=== PATIENT | female | born 1990 | race Caucasian/White ===

== ENCOUNTER → 2020-06-16 | Outpatient (CLI) | payer BC ==
[~2020-06-16] MED LIST: AMIT10TA PO; AMOX1TAB10 PO
--- NOTE | 2020-06-16 12:49 | RAD ---
Complete abdominal ultrasound 06/16/2020 8:00 AM Clinical History: right upper quadrant abdominal pain Technique: Ultrasound examination of the abdomen was performed, and multiple static images were submitted for review. Comparison: None Findings: The visualized portions of the pancreas are within normal limits. The visualized aorta and IVC are unremarkable. The gallbladder is surgically absent. The common bile duct measures 6 mm in diameter which is within normal limits given prior cholecystectomy. The liver measures between 15 and 16 cm longitudinally. The liver is normal in echotexture. No intrahepatic biliary ductal dilatation is seen. No focal hepatic lesions are identified. The spleen is normal in appearance measuring 11 cm. The bilateral kidneys are normal in appearance without evidence of obstructive uropathy, nephrolithiasis, or focal renal lesion. Right kidney measures 11.3 cm in length. Left kidney measures 10.9 cm in length. Impression: 1. No evidence of acute intra-abdominal abnormality 2. Prior cholecystectomy Electronically signed by: Chapin Gonzalez MD (06/16/2020 12:47 PM) [id number]
== END | disposition home or self-care (01) ==
LOC: US 09:40
PROVIDERS: ATTEND Family Medicine
DX: R10.11 Right upper quadrant pain (principal); Z90.49 Acquired absence of other specified parts of digestive tract
CPT/HCPCS: 76700